=== PATIENT | female | born 1970 | race African-American/Black ===

== ENCOUNTER 2018-12-25 21:04 | Emergency (ER) | payer MEDICAID ==
[~2018-12-25] VITALS: Ht 160 cm; Wt 54.4 kg
--- NOTE | 2018-12-25 21:19 | NUR ---
ED Nurse Note: Patient presents with complaints of right foot injury, unable to recall the exact mechanism of injury. Accompanied by a friend at bedside, also arrived with personal crutches.
--- NOTE | 2018-12-25 21:22 | NUR ---
ED Nurse Note: Patient currently collecting urine sample.
--- NOTE | 2018-12-25 21:28 | Emergency Room Report ---
History of Present Illness General Chief Complaint: Lower Extremity Injury Source: Patient Present Illness HPI 48-year-old female presents with right foot pain that started Monday, patient states she was having a lot of fun over the weekend, she does not know if she had any trauma to it, she does endorse sharp pain that is aggravated with movement, alleviated with rest, no fever no chills, patient came in with crutches, patient presents for evaluation Allergies: Coded Allergies: No Known Allergies (Unverified , 12/25/18) Patient History Past Medical History: see triage record Now: No Reviewed Nursing Documentation: PMH: Agreed; PSxH: Agreed Nursing Documentation-PMH Past Medical History: No History, Except For Hx Hypertension: Yes Review of Systems All Other Systems: negative except mentioned in HPI Physical Exam Vital Signs Date Time Temp Pulse Resp B/P (MAP) Pulse Ox O2 Delivery O2 Flow Rate FiO2 12/25/18 21:06 98.2 99 14 134/88 (103) 96 Room Air Sp02 EP Interpretation: reviewed, normal General Appearance: well appearing, no apparent distress, alert Head: normocephalic, atraumatic Eyes: bilateral eye PERRL, bilateral eye EOMI ENT: uvula midline, moist mucus membranes Neck: supple, thyroid normal, supple/symm/no masses Respiratory: lungs clear, no respiratory distress, no retraction, no accessory muscle use Cardiovascular #1: normal peripheral pulses, regular rate, rhythm, no edema, no gallop, no murmur Gastrointestinal: non tender, soft, no guarding, no rebound Musculoskeletal: other - Right foot: 2+ PT DP, cap refill less than 3 seconds, ecchymosis overlying the third through fifth metatarsals, ecchymosis on the plantar aspect, slight tenderness to palpation over metatarsals 3 through 4, minimal swelling noted 5 out of 5 strength plantar dorsiflexion, fires EHL Neurologic: alert, oriented x3 Psychiatric: mood/affect normal Skin: no rash, warm/dry Procedures Splinting Splinting : Consent: Verbal Location: Right foot Pre-Made Type: Glass Hand-Made Type: Ortho-Glass Splint: poserior short Pre-Proc Neuro Vasc Exam: normal Post-Proc Neuro Vasc Exam: normal Patient Tolerated: Well Complications: None Medical Decision Making Diagnostic Impression: Primary Impression: Foot fracture, right ER Course Patient with a metatarsal fracture of the third proximal aspect, patient placed in a posterior short leg, no weightbearing, crutches given, return precautions discussed follow-up with PCP, Ortho referral Other X-Ray Diagnostic Results Other X-Ray Diagnostic Results : X-Ray ordered: Right foot complete # of Views/Limited Vs Complete: 3 View Indication: Pain EP Interpretation: Yes Interpretation: other - Proximal third metatarsal fracture Impression: Other - Proximal third metatarsal fracture Electronically Signed by: Jaison Neves MD Last Vital Signs Date Time Temp Pulse Resp B/P (MAP) Pulse Ox O2 Delivery O2 Flow Rate FiO2 12/25/18 21:06 98.2 99 14 134/88 (103) 96 Room Air Disposition: HOME, SELF-CARE Condition: Stable Scripts Naproxen* (NAPROSYN*) 250 Mg Tablet 500 MG ORAL BID PRN for For Pain, #20 TAB 0 Refills Prov: Jiason Neves MD 12/25/18 Referrals: [facility] Patient Instructions: Metatarsal Fracture Additional Instructions: The patient was provided with discharge instructions, notified to follow-up with a primary care doctor and or specialist in the next 24-48 hours, and to return to the ED if they have worsening of their symptoms. Please note that this report is being documented using [employer] technology. This can lead to erroneous entry secondary to incorrect interpretation by the dictating instrument. Jaison Neves MD Dec 25, 2018 21:28
--- NOTE | 2018-12-25 21:59 | NUR ---
ED Nurse Note: Patient currently awaiting splint application and reevaluation by [facility] prior to discharge.
--- NOTE | 2018-12-25 22:15 | NUR ---
ED Nurse Note: Splint currently being applied.
--- NOTE | 2018-12-25 22:22 | Diagnostic Imaging Report ---
Indication: Foot Pain Comparison: None Findings: 3 views of the right foot were obtained. No acute fractures, malalignment, erosions or periostitis are identified. Impression: No acute findings.
[2018-12-25] MEDS ORDERED: NAPROXEN250 MG ORAL (22:24)
[2018-12-25] MEDS ORDERED: CRUTCH1 EACH MC (22:25)
--- NOTE | 2018-12-25 22:32 | NUR ---
ED Nurse Note: Patient cleared for discharge by [facility], Patient verbalized understanding of discharge instructions. Patient ID band removed, Patient departed with all belongings.
[2018-12-25 22:36] VITALS: BP 134/88
== END 2018-12-25 22:37 | disposition home or self-care (01) ==
LOC: EMR 21:30
DX: S92.331A Displaced fracture of third metatarsal bone, right foot, initial encounter for closed fracture (principal); X58.XXXA Exposure to other specified factors, initial encounter; Y92.9 Unspecified place or not applicable; I10 Essential (primary) hypertension
CPT/HCPCS: 29515; 81025; 99283